=== PATIENT | female | born 1955 | race Native Hawaiian/Other Pacific Islander ===

== ENCOUNTER 2016-12-09 07:44 | Emergency (ER) | payer OTHER ==
[~2016-12-09] VITALS: Ht 167.6 cm; Wt 63.5 kg
[~2016-12-09 07:44] MED LIST: ALLERCLEAR10 MG PO; BREO ELLIPTA 101 INH IN; CARV12.5 PO; COMPLETE OR; HYDROCORTISO2.5 % RE; LEVO0.0529 PO; METHIMAZOLE10 MG PO; SMZ TMP PO; UNITH DIRECT75 MCG PO; WARF5TAB6 PO; WARFARIN2 MG PO; WARFARIN2.5 MG PO; WARFARIN4 MG PO; [UNRECOGNIZED DRUG - OTHER] OR
[2016-12-09] MEDS ORDERED: XARELTO20 MG OR (07:55)
[2016-12-09] MEDS ORDERED: IRON27 MG OR (07:55)
[2016-12-09 08:21] LABS: PLATELET COUNT 151 K/uL (152-353)
[2016-12-09 08:34] LABS: POTASSIUM 3.6 mmol/L (3.6-5.2); SODIUM 135 mmol/L (136-145)
[2016-12-09 10:40] VITALS: BP 136/72; TEMP 98.2
== END 2016-12-09 10:41 | disposition short-term general hospital (02) ==
LOC: ED 07:44
DX: K35.89 Other acute appendicitis (principal); R10.84 Generalized abdominal pain; R11.2 Nausea with vomiting, unspecified
CPT/HCPCS: 36415; 80053; 81000; 82150; 83690; 85027; 96361; 96374; 99284; J1885

== ENCOUNTER 2017-09-13 09:09 | Outpatient (CLI) | payer OTHER ==
[~2017-09-13 09:09] MED LIST changes: +IRON27 MG OR; +XARELTO20 MG OR
[2017-09-13 09:56] LABS: PLATELET COUNT 164 K/uL (152-353)
[2017-09-13 10:33] LABS: POTASSIUM 4.3 mmol/L (3.6-5.2)
== END 2017-09-13 21:47 | disposition home or self-care (01) ==
LOC: LABW 09:09
PROVIDERS: Internal Medicine Endocrinology, Diabetes & Metabolism
DX: E04.8 Other specified nontoxic goiter (principal); I10 Essential (primary) hypertension
CPT/HCPCS: 36415; 80053; 84439; 84443; 84480; 85027

== ENCOUNTER 2017-12-01 08:31 | Outpatient (CLI) | payer OTHER ==
[2017-12-01 08:49] LABS: PLATELET COUNT 161 K/uL (152-353)
[2017-12-01 09:02] LABS: POTASSIUM 3.6 mmol/L (3.6-5.2)
== END 2017-12-01 23:30 | disposition home or self-care (01) ==
LOC: LABW 08:31
PROVIDERS: Surgery
DX: Z01.810 Encounter for preprocedural cardiovascular examination (principal); Z01.811 Encounter for preprocedural respiratory examination; Z01.812 Encounter for preprocedural laboratory examination; Z79.01 Long term (current) use of anticoagulants
CPT/HCPCS: 36415; 80053; 85027

== ENCOUNTER 2017-12-27 08:13 | Outpatient (CLI) | payer OTHER | END 2017-12-27 19:51 | disposition home or self-care (01) | LOC: LABW 08:13 | DX: E05.80 Other thyrotoxicosis without thyrotoxic crisis or storm (principal) | CPT/HCPCS: 36415; 84439; 84443; 84480 ==

== ENCOUNTER 2018-03-09 08:21 | Outpatient (CLI) | payer OTHER | END 2018-03-09 20:11 | disposition home or self-care (01) | LOC: LABW 08:21 | DX: E03.9 Hypothyroidism, unspecified (principal); E55.9 Vitamin D deficiency, unspecified; I10 Essential (primary) hypertension | CPT/HCPCS: 36415; 82306; 84439; 84443 ==

== ENCOUNTER 2018-07-21 10:30 | Outpatient (CLI) | payer OTHER | END 2018-07-21 20:33 | disposition home or self-care (01) | LOC: LABW 10:30 | DX: E05.90 Thyrotoxicosis, unspecified without thyrotoxic crisis or storm (principal) | CPT/HCPCS: 36415; 84439; 84443 ==

== ENCOUNTER 2019-04-26 13:26 | Outpatient (CLI) | payer OTHER ==
[2019-04-26 14:04] LABS: PLATELET COUNT 177 K/uL (152-353)
[2019-04-26 14:22] LABS: POTASSIUM 5.3 mmol/L (3.6-5.2)
== END 2019-04-26 20:15 | disposition home or self-care (01) ==
LOC: LAB 13:26
PROVIDERS: Nurse Practitioner Family
DX: Z00.00 Encounter for general adult medical examination without abnormal findings (principal); I10 Essential (primary) hypertension; I48.91 Unspecified atrial fibrillation; E05.80 Other thyrotoxicosis without thyrotoxic crisis or storm; Z79.899 Other long term (current) drug therapy; R53.83 Other fatigue; R53.81 Other malaise; E55.9 Vitamin D deficiency, unspecified; E53.8 Deficiency of other specified B group vitamins
CPT/HCPCS: 80053; 80061; 82306; 82607; 83036; 84439; 84443; 85027

== ENCOUNTER 2020-09-02 09:36 | Outpatient (CLI) | payer OTHER | END 2020-09-02 21:35 | disposition home or self-care (01) | LOC: MAMMO 09:36 | PROVIDERS: ATTEND Nurse Practitioner Family | DX: Z12.31 Encounter for screening mammogram for malignant neoplasm of breast (principal) ==

== ENCOUNTER 2020-09-24 08:34 | Outpatient (CLI) | payer OTHER | END 2020-09-24 20:59 | disposition home or self-care (01) | LOC: US 08:34 | PROVIDERS: ATTEND Nurse Practitioner Family | DX: R92.8 Other abnormal and inconclusive findings on diagnostic imaging of breast (principal) ==